=== PATIENT | male | born 1985 | race Caucasian/White ===

== ENCOUNTER 2016-09-30 09:39 | Emergency (ER) | payer OTHER, MEDICARE, MEDICAID ==
[~2016-09-30] VITALS: Ht 167.6 cm; Wt 102.1 kg
--- OUTSIDE RECORDS SUMMARY | 2016-09-30 09:47 | XMS REPORT ---
Author Author Gaby Watt [facility] Address [address] [place], [place] [id number] Care Team Providers Care Bid Clerk Name Role Phone Alyssa Watt PCP Allergies and Adverse Reactions Name Reaction Notes Tetanus Toxoid Cortisone Celebrex SULFA (SULFONAMIDES) Plan of Treatment Planned Activity Comments Planned Date Planned Time Plan/Goal COMPREHEN METABOLIC PANEL 05/01/2015 12:00 AM COMPLETE CBC W/AUTO DIFF WBC 05/01/2015 12:00 AM VITAMIN B-12 05/01/2015 12:00 AM ASSAY OF FOLIC ACID SERUM 05/01/2015 12:00 AM VITAMIN D 25 HYDROXY 05/01/2015 12:00 AM COMPLETE CBC W/AUTO DIFF WBC 02/04/2015 12:00 AM COMPREHEN METABOLIC PANEL 02/04/2015 12:00 AM Medications Active Name Start Date Estimated Completion Date SIG Comments dicyclomine 10 mg oral capsule take 1 capsule by oral route As needed trazodone 100 mg oral tablet take 1 tablet by oral route once a day (at bedtime) Xanax 1 mg oral tablet take 1 tablet by oral route 4 times a day Lexapro 20 mg oral tablet take 1 tablet (20 mg) by oral route once daily HyoMax-SL 0.125 mg sublingual tablet, sublingual place 1 tablet under tongue by translingual route As needed multivitamin Oral capsule take 1 capsule by oral route daily Lomotil 2.5-0.025 mg oral tablet take 1 tablet by oral route As needed Voltaren 1 % topical gel 12/25/2014 APPLY 2 GRAMS TO THE AFFECTED AREA(S) FOUR TIMES A DAY Nexium oral Voltaren 1 % topical gel 04/07/2015 APPLY 2 GRAMS TO THE AFFECTED AREA(S) FOUR TIMES A DAY Voltaren 1 % topical gel 07/15/2015 APPLY 2 GRAMS TO THE AFFECTED AREA(S) FOUR TIMES A DAY [place] 7.5-325 mg oral tablet 07/25/2015 08/24/2015 take 1 tablet by oral route every 8 hours for 30 days pain Name Start Date Expiration Date SIG Comments Vitamin D2 50,000 unit oral capsule 08/06/2013 10/05/2013 take 1 capsule (50, 000 unit) by oral route once weekly for 60 days Voltaren 1 % topical gel 12/18/2013 06/15/2014 apply 2 gram to the affected area(s) by topical route 4 times per day for 30 days Zantac 150 mg oral tablet 03/03/2015 07/01/2015 take 1 tablet (150 mg) by oral route 2 times per day for 30 days Discontinued Name Start Date Discontinued Date SIG Comments cyclobenzaprine 10 mg oral tablet 12/17/2013 take 1 tablet by oral route once a day (at bedtime) ibuprofen 200 mg oral capsule 12/17/2013 take 1 capsule (200 mg) by oral route every 6 hours as needed Mobic 15 mg oral tablet 12/18/2013 02/26/2014 take 1 tablet (15 mg) by oral route once daily for 30 days diclofenac sodium 75 mg oral tablet,delayed release (DR/EC) 02/26/20142013 take 1 tablet (75 mg) by oral route 2 times per day for 30 days gabapentin 100 mg oral capsule 05/13/2014 06/10/2014 take 1 capsule by oral route 3 times a day for 30 days phentermine 37.5 mg oral tablet 03/03/2015 04/03/2015 take one-half tablet ( 18.75 mg) by oral route once daily before breakfast for 30 days Zipsor 25 mg oral capsule 05/01/2015 05/27/2015 take 1 capsule (25 mg) by oral route q6 hours prn pain Problem List Description Status Onset Asperger syndrome Active Gastroesophageal Reflux Active Irritable bowel syndrome Active Back pain Active Joint Pain Active Knee Pain Active Pain in joint; Bilateral Knees Active 02/27/2014 Lumbago Active 02/27/2014 Gait Abnormality Active 02/27/2014 Hip pain Active 02/27/2014 Vitamin D deficiency Active 05/01/2015 Vital Signs Date Time BP-Sys(mm[Hg] BP-Rubia(mm[Hg]) HR(bpm) RR(rpm) Temp WT HT HC BMI BSA BMI Percentile O2 Sat(%) 05/27/2015 1:11:00 PM 126 mmHg 82 mmHg 73 bpm 20 rpm 96.4 F 233 lbs 65 in 38.77 kg/m2 2.20 m2 05/01/2015 1:17:00 PM 130 mmHg 76 mmHg 70 bpm 18 rpm 96 F 230 lbs 65 in 38.2736 kg/m 2.1874 m 04/03/2015 1:19:00 PM 132 mmHg 82 mmHg 70 bpm 18 rpm 96.2 F 230 lbs 65 in 38.27 kg/m2 2.19 m2 03/03/2015 3:40:00 PM 118 mmHg 68 mmHg 73 bpm 20 rpm 96.8 F 225 lbs 66 in 36.3156 kg/m 2.18 m 02/04/2015 4:07:00 PM 122 mmHg 68 mmHg 92 bpm 16 rpm 97.1 F 225 lbs 66 in 36.32 kg/m2 2.18 m2 11/04/2014 1:00:00 PM 124 mmHg 80 mmHg 80 bpm 18 rpm 97 F 226 lbs 66 in 36.477 kg/m 2.1849 m 09/09/2014 12:55:00 PM 112 mmHg 64 mmHg 88 bpm 18 rpm 97.2 F 224 lbs 66 in 36.15 kg/m2 2.18 m2 07/15/2014 4:03:00 PM 152 mmHg 92 mmHg 70 bpm 16 rpm 96.8 F 216.5 lbs 65 in 36.0271 kg/m 2.1222 m 06/10/2014 3:41:00 PM 116 mmHg 80 mmHg 68 bpm 16 rpm 97.3 F 218 lbs 66 in 35.19 kg/m2 2.15 m2 05/13/2014 1:05:00 PM 104 mmHg 60 mmHg 72 bpm 16 rpm 96.5 F 213.25 lbs 66 in 34.4191 kg/m 2.1223 m 02/26/2014 2:11:00 PM 138 mmHg 82 mmHg 66 bpm 16 rpm 97.4 F 223 lbs 66 in 35.99 kg/m2 2.17 m2 12/17/2013 2:34:00 PM 110 mmHg 80 mmHg 70 bpm 16 rpm 97.4 F 223 lbs 65 in 37.1088 kg/m 2.1538 m 10/22/2013 1:05:00 PM 110 mmHg 72 mmHg 72 bpm 16 rpm 97 F 220 lbs 65 in 36.61 kg/m2 2.14 m2 09/03/2013 1:21:00 PM 124 mmHg 72 mmHg 88 bpm 18 rpm 97.1 F 219 lbs 65 in 36.4431 kg/m 2.1344 m 06/28/2013 2:17:00 PM 128 mmHg 74 mmHg 88 bpm 18 rpm 97 F 218 lbs 65 in 36.28 kg/m2 2.13 m2 Social History Name Description Comments Single Home Schooled Tobacco Never smoker History of Procedures Date Ordered Description Order Status 07/03/2015 12:00 AM OFFICE/OUTPATIENT VISIT EST Reviewed 06/28/2013 12:00 AM ASSAY OF BLOOD/URIC ACID Reviewed 06/28/2013 12:00 AM RHEUMATOID FACTOR QUANT Reviewed 06/28/2013 12:00 AM ANTINUCLEAR ANTIBODIES Reviewed 06/28/2013 12:00 AM COMPREHEN METABOLIC PANEL Reviewed 06/28/2013 12:00 AM ASSAY THYROID STIM HORMONE Reviewed 06/28/2013 12:00 AM VITAMIN D 25 HYDROXY Reviewed 06/28/2013 12:00 AM METABOLIC PANEL TOTAL CA Reviewed 10/22/2013 12:00 AM Knees Both Standing AP - MOB Returned 12/17/2013 12:00 AM RADEX HIPS BILATERAL 2 VIEWS ANTEROPOST PELVIS Returned 02/26/2014 12:00 AM RADEX HIPS BILATERAL 2 VIEWS ANTEROPOST PELVIS Reviewed 09/09/2014 12:00 AM LOWER EXTREMITY STUDY Returned 03/24/2015 12:00 AM COMPLETE CBC W/AUTO DIFF WBC Returned 03/24/2015 12:00 AM COMPREHEN METABOLIC PANEL Returned Results Summary Data and Description Results 07/03/2015 3:00 PM WBC 7.9 RBC 5.18 HGB 16.70 g/dLHCT 49.10 %MCV 95.0 fLMCH 32.20 pgMCHC 34.0 g/dLRDW CV 13.20 %MPV 10.60 fLPLT 259 %NEUT 51.60 %%LYMP 39.10 %%MONO 8.0 %%EOS 0.90 %%BASO 0.40 %#NEUT 4.06 #LYMP 3.07 #MONO 0.63 #EOS 0.07 #BASO 0.03 GLUCOSE 112.0 mg/dLSODIUM 139.0 mmol/LPOTASSIUM 3.60 mmol/ LCHLORIDE 108.0 mmol/LCO2 23.0 mmol/LBUN 9.0 mg/dLCREATININE 1.10 mg/dLSGOT/AST 30.0 IU/LSGPT/ALT 77.0 IU/LALK PHOS 67.0 IU/LTOTAL PROTEIN 6.40 g/dLALBUMIN 4.30 g/dLTOTAL BILI 0.40 mg/dLCALCIUM 9.10 mg/dLeGFR >60 mL/min/1.73mVITAMIN B12 834.0 pg/mLFOLATE 15.10 ng/mL History Of Immunizations Not available. History of Past Illness Name Date of Onset Comments Asperger syndrome Irritable bowel syndrome Gastroesophageal Reflux Back pain Joint Pain Knee Pain Pain in joint; Bilateral Knees 02/27/2014 Lumbago 02/27/2014 Gait Abnormality 02/27/2014 Hip pain 02/27/2014 Vitamin D deficiency 05/01/2015 Polyarthralgia Jun 28 2013 2:26PM Vitamin D Deficiency Aug 06 2013 11:00AM Polyarthralgia Sep 03 2013 1:30PM Vitamin D Deficiency Sep 03 2013 1:30PM Pain in joint; Bilateral Knees Oct 22 2013 1:07PM Lumbago Oct 22 2013 1:07PM Pain in joint; Bilateral Knees Dec 17 2013 2:37PM Lumbago Dec 17 2013 2:37PM Gait Abnormality Dec 17 2013 2:37PM Hip pain Dec 17 2013 2:37PM Pain in joint; Bilateral Knees Feb 26 2014 2:19PM Lumbago Feb 26 2014 2:19PM Gait Abnormality Feb 26 2014 2:19PM Hip pain Feb 26 2014 2:19PM Pain in joint; Bilateral Knees May 13 2014 1:08PM Lumbago May 13 2014 1:08PM Gait Abnormality May 13 2014 1:08PM Hip pain May 13 2014 1:08PM Claudication Sep 09 2014 12:59PM Pain in joint; Bilateral Knees Jun 10 2014 3:43PM Lumbago Jun 10 2014 3:43PM Gait Abnormality Jun 10 2014 3:43PM Hip pain Jun 10 2014 3:43PM Abdominal pain Feb 04 2015 4:09PM Pain in joint; Bilateral Knees Jul 15 2014 4:18PM Lumbago Jul 15 2014 4:18PM Gait Abnormality Jul 15 2014 4:18PM Hip pain Jul 15 2014 4:18PM Pain in joint; Bilateral Knees Sep 09 2014 12:59PM Lumbago Sep 09 2014 12:59PM Gait Abnormality Sep 09 2014 12:59PM Hip pain Sep 09 2014 12:59PM Pain in joint; Bilateral Knees Nov 04 2014 1:04PM Lumbago Nov 04 2014 1:04PM Gait Abnormality Nov 04 2014 1:04PM Hip pain Nov 04 2014 1:04PM Pain in joint; Bilateral Knees Feb 04 2015 4:09PM Lumbago Feb 04 2015 4:09PM Gait Abnormality Feb 04 2015 4:09PM Hip pain Feb 04 2015 4:09PM Abdominal pain Mar 03 2015 3:43PM Pain in joint; Bilateral Knees Mar 03 2015 3:43PM Lumbago Mar 03 2015 3:43PM Gait Abnormality Mar 03 2015 3:43PM Hip pain Mar 03 2015 3:43PM Pain in joint; Bilateral Knees Apr 03 2015 1:21PM Lumbago Apr 03 2015 1:21PM Gait Abnormality Apr 03 2015 1:21PM Hip pain Apr 03 2015 1:21PM Vitamin D deficiency May 01 2015 1:20PM Vitamin B 12 deficiency May 01 2015 1:20PM Elevated LFTs May 01 2015 1:20PM Pain in joint; Bilateral Knees May 01 2015 1:20PM Lumbago May 01 2015 1:20PM Gait Abnormality May 01 2015 1:20PM Hip pain May 01 2015 1:20PM Pain in joint; Bilateral Knees May 27 2015 1:12PM Lumbago May 27 2015 1:12PM Gait Abnormality May 27 2015 1:12PM Asperger Syndrome May 27 2015 1:12PM Lumbago Jul 03 2015 2:31PM Chronic pain syndrome Jul 25 2015 11:00AM Payers Insurance Name Company Name Plan Name Plan Number Policy Number Policy Group Number Start Date Medicare Part B [employer] [place] [id number] Wednesday, 2006 [facility] [id number] N/A History of Encounters Visit Date Visit Type Provider 07/25/2015 Nurse visit Gaby PAIZ 07/03/2015 Office visit Gaby PAIZ 05/27/2015 Office visit Gaby PAIZ 05/01/2015 Office visit Gaby PAIZ 04/03/2015 Office visit Gaby PAIZ 03/03/2015 Office visit Gaby PAIZ 02/04/2015 Office visit Gaby PAIZ 11/04/2014 Office visit Gaby PAIZ 09/09/2014 Office visit Gaby PAIZ 07/15/2014 Office visit Gaby PAIZ 06/10/2014 Office visit Gaby PAIZ 05/13/2014 Office visit Gaby PAIZ 02/26/2014 Office visit Gaby PAIZ 12/17/2013 Office visit Gaby PAIZ 10/22/2013 Office visit Gaby PAIZ 09/03/2013 Office visit Joelle Celaya MD 06/28/2013 Office visit Joelle Celaya MD
[2016-09-30] MEDS ORDERED: DIAZ10TA PO (10:19)
[2016-09-30] MEDS ORDERED: HYDR-3816 PO (10:19)
[2016-09-30] MEDS ORDERED: MULT-974 PO (10:19)
[2016-09-30] MEDS ORDERED: ESCI20TA PO (10:19)
[2016-09-30] MEDS ORDERED: TRAZ-28 PO (10:19)
[2016-09-30] MEDS ORDERED: ASPI-999 PO (10:19)
[2016-09-30] MEDS ORDERED: ALPR2TAB2 PO (10:19)
[2016-09-30 11:07] LABS: BASOPHILS % (AUTO) 0 % (0-10); EOSINOPHILS # (AUTO) 0.1 10^3/uL (0.0-0.3); EOSINOPHILS % (AUTO) 1 % (0-10); LYMPHOCYTES # (AUTO) 2.5 X 10^3 (1.0-4.0); LYMPHOCYTES % (AUTO) 35 % (12-44); MEAN CORPUSCULAR HEMOGLOBIN 32 PG (25-34); MEAN CORPUSCULAR HGB CONC 34 G/DL (32-36); MEAN CORPUSCULAR VOLUME 93 FL (80-99); MEAN PLATELET VOLUME 10.7 FL (7.4-10.4); MONOCYTES # (AUTO) 0.6 X 10^3 (0.0-1.0); MONOCYTES % (AUTO) 8 % (0-12); NEUTROPHILS # (AUTO) 3.9 X 10^3 (1.8-7.8); NEUTROPHILS % (AUTO) 56 % (42-75); PLATELET COUNT 235 10^3/uL (130-400); RED BLOOD COUNT 5.28 10^6/uL (4.35-5.85); RED CELL DISTRIBUTION WIDTH 13.3 % (10.0-14.5)
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
[2016-09-30] MEDS ORDERED: IOHEXOL 350 MG/ML 100 ML (OMNIPAQUE 350) VIAL IV ONE (12:00)
[2016-09-30] MEDS ORDERED: NS 100 ML (IVPB) BAG IV ONE (12:00)
[2016-09-30] MEDS ORDERED: CATHETER FLUSH 10 ML SYR IV PRN (12:00)
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
[2016-09-30 13:39] VITALS: BP 118/70
== END 2016-09-30 13:37 | disposition home or self-care (01) ==
LOC: EDUNIT# 09:39 → ER 09:41
DX: S19.9XXA Unspecified injury of neck, initial encounter (principal); Z79.82 Long term (current) use of aspirin; Z79.899 Other long term (current) drug therapy; V43.62XA Car passenger injured in collision with other type car in traffic accident, initial encounter; Y92.414 Local residential or business street as the place of occurrence of the external cause; Y99.8 Other external cause status
CPT/HCPCS: 36415; 71020; 72040; 74177; 85025

== ENCOUNTER → 2017-03-26 | Outpatient (CLI) | payer OTHER, MEDICARE, MEDICAID ==
[~2017-03-26] MED LIST: ALPR2TAB2 PO; ASPI-999 PO; DIAZ10TA PO; ESCI20TA PO; HYDR-3816 PO; MULT-974 PO; TRAZ-28 PO
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
== END ==
LOC: RAD 12:48
PROVIDERS: ATTEND Family Medicine
DX: M25.551 Pain in right hip (principal)
CPT/HCPCS: 73502

== ENCOUNTER 2020-11-11 10:00 | Emergency (ER) | payer MEDICARE, MEDICAID ==
[~2020-11-11] VITALS: Ht 167 cm; Wt 99.0 kg
[~2020-11-11 10:00] MED LIST changes: +HYDR-34 PO; -HYDR-3816 PO; -TRAZ-28 PO; +TRZ50T PO
[2020-11-11] MEDS ORDERED: ONDANSETRON 4 MG/2 ML (SDV) Z0FRAN IV PRN (10:30)
[2020-11-11] MEDS ORDERED: LACTATED RINGERS 1,000 ML IV ONE ×2 (10:30)
--- NOTE | 2020-11-11 10:31 | ED Abdominal Pain ---
General Chief Complaint: Abdominal/GI Problems Stated Complaint: FEVER,FAULKNER,N/V Source of Information: Patient Exam Limitations: No Limitations History of Present Illness Date Seen by Provider: Nov 11, 2020 Time Seen by Provider: 10:08 Initial Comments The patient and his mother present to the ER by private conveyance with chief complaint of epigastric abdominal pain nausea vomiting diarrhea and fever T-max 100.8 since Tuesday, 2 days ago. No sick contacts. No history of abdominal surgeries. Primary care Dr. Paul [place], [place]. They have been using Phenergan, Tylenol and Motrin with last dose of Motrin being about 2 hours prior to arrival. Patient feels he is short of breath and has no history of lung disorders or smoking. 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 Allergies and Home Medications Allergies Coded Allergies: Sulfa (Sulfonamide Antibiotics) (Unverified Allergy, Mild, RASH, 09/30/16) tetanus and diphtheria toxoids (Unverified Allergy, Mild, RASH, 09/30/16) Uncoded Allergies: STEROID (Allergy, Mild, RASH, 09/30/16) Home Medications Alprazolam 2 Mg Tablet, 2 MG PO QID, (Reported) Aspirin 81 Mg Tab.chew, 172 MG PO DAILY, (Reported) Diazepam 10 Mg Tablet, 10 MG PO BID, (Reported) Escitalopram Oxalate 20 Mg Tablet, 20 MG PO DAILY, (Reported) Hydrocodone Bit/Acetaminophen 1 Each Tablet, 1 EACH PO TID, (Reported) Multivitamin 1 Each Tablet, 1 EACH PO DAILY, (Reported) Trazodone HCl 50 Mg Tablet, 50 MG PO HS, (Reported) Patient Home Medication List Home Medication List Reviewed: Yes Review of Systems Review of Systems Constitutional: chills, fever, malaise EENTM: No Blurred Vision, No Double Vision Respiratory: Cough, Shortness of Air Cardiovascular: Denies Chest Pain, Denies Edema Gastrointestinal: See HPI, Abdominal Pain (Epigastric); Denies Blood Streaked Stools, Denies Constipated; Diarrhea, Nausea, Poor Fluid Intake, Vomiting Genitourinary: Denies Burning, Denies Discharge Musculoskeletal: No back pain, No joint pain All Other Systems Reviewed Negative Unless Noted: Yes Past Vpymldl-Oxefmy-Lgguye Hx Patient Social History Alcohol Use: Denies Use Smoking Status: Never a Smoker Recent Hopitalizations: No Immunizations Up To Date Tetanus Booster (TDap): Unknown Date of Influenza Vaccine: Jun 14, 2016 Past Medical History Gallbladder, Tonsillectomy Adverse Reaction/Blood Tranf: No Physical Exam Vital Signs Vital Signs - First Documented 11/11/20 10:05 Temp 36.7 Pulse 117 Resp 24 B/P (MAP) 126/96 (106) Pulse Ox 98 Capillary Refill : Height/Weight/BMI Height: 5'6" Weight: 225lbs. oz. 102.658187ff; BMI Method:Stated General Appearance: moderate distress, obese HEENT: PERRL/EOMI, pharynx normal (Mildly dry mucosa) Neck: full range of motion, normal inspection Respiratory: lungs clear, normal breath sounds, no respiratory distress, no accessory muscle use Cardiovascular: normal peripheral pulses, regular rate, rhythm, tachycardia Gastrointestinal: normal bowel sounds, soft; No guarding, No rebound; tenderness (Mild epigastric), other (Negative for McBurney's point tenderness, Matta sign, Rovsing's, psoas or other mesenteric signs) Neurologic/Psychiatric: alert, normal mood/affect, oriented x 3 Skin: normal color, warm/dry Focused Exam Lactate Level 11/11/20 10:18: Lactic Acid Level 2.01*H 11/11/20 12:10: Lactic Acid Level 2.24*H Lactic Acid Level Laboratory Tests Test 11/11/20 10:18 11/11/20 12:10 Lactic Acid Level 2.01 MMOL/L (0.50-2.00) *H 2.24 MMOL/L (0.50-2.00) *H Progress/Results/Core Measures Results/Orders Lab Results Laboratory Tests Test 11/11/20 10:18 11/11/20 10:20 11/11/20 12:00 11/11/20 12:10 Range/Units White Blood Count 11.6 H 4.3-11.0 10^3/uL Red Blood Count 6.54 H 4.30-5.52 10^6/uL Hemoglobin 20.9 H 13.3-17.7 g/dL Hematocrit 60 H 40-54 % Mean Corpuscular Volume 92 80-99 fL Mean Corpuscular Hemoglobin 32 25-34 pg Mean Corpuscular Hemoglobin Concent 35 32-36 g/dL Red Cell Distribution Width 13.0 10.0-14.5 % Platelet Count 319 130-400 10^3/uL Mean Platelet Volume 10.4 9.0-12.2 fL Immature Granulocyte % (Auto) 0 % Neutrophils (%) (Auto) 81 H 42-75 % Lymphocytes (%) (Auto) 9 L 12-44 % Monocytes (%) (Auto) 9 0-12 % Eosinophils (%) (Auto) 0 0-10 % Basophils (%) (Auto) 0 0-10 % Neutrophils # (Auto) 9.4 H 1.8-7.8 10^3/uL Lymphocytes # (Auto) 1.1 1.0-4.0 10^3/uL Monocytes # (Auto) 1.0 0.0-1.0 10^3/uL Eosinophils # (Auto) 0.0 0.0-0.3 10^3/uL Basophils # (Auto) 0.0 0.0-0.1 10^3/uL Immature Granulocyte # (Auto) 0.0 0.0-0.1 10^3/uL Prothrombin Time 13.1 12.2-14.7 SEC INR Comment 1.0 0.8-1.4 Activated Partial Thromboplast Time 30 24-35 SEC Sodium Level 137 135-145 MMOL/L Potassium Level 3.8 3.6-5.0 MMOL/L Chloride Level 104 98-107 MMOL/L Carbon Dioxide Level 18 L 21-32 MMOL/L Anion Gap 15 H 5-14 MMOL/L Blood Urea Nitrogen 12 7-18 MG/DL Creatinine 1.30 0.60-1.30 MG/DL Estimat Glomerular Filtration Rate > 60 BUN/Creatinine Ratio 9 Glucose Level 105 70-105 MG/DL Lactic Acid Level 2.01 *H 2.24 *H 0.50-2.00 MMOL/L Calcium Level 9.8 8.5-10.1 MG/DL Corrected Calcium 8.5-10.1 MG/DL Total Bilirubin 1.6 H 0.1-1.0 MG/DL Aspartate Amino Transf (AST/SGOT) 28 5-34 U/L Alanine Aminotransferase (ALT/SGPT) 62 H 0-55 U/L Alkaline Phosphatase 73 40-136 U/L Total Protein 8.3 H 6.4-8.2 GM/DL Albumin 5.2 H 3.2-4.5 GM/DL Coronavirus 2019 ([facility]) Negative Negative Urine Color YELLOW Urine Clarity CLEAR Urine pH 6.5 5-[address] 1.020 1.016-1.022 Urine Protein 2+ H NEGATIVE Urine Glucose (UA) NEGATIVE NEGATIVE Urine Ketones 3+ H NEGATIVE Urine Nitrite NEGATIVE NEGATIVE Urine Bilirubin 1+ H NEGATIVE Urine Urobilinogen 0.2 < = 1.0 MG/DL Urine Leukocyte Esterase NEGATIVE NEGATIVE Urine RBC (Auto) NEGATIVE NEGATIVE Urine RBC NONE /HPF Urine WBC RARE /HPF Urine Squamous Epithelial Cells RARE /HPF Urine Crystals NONE /LPF Urine Bacteria TRACE /HPF Urine Casts NONE /LPF Urine Mucus MODERATE H /LPF Urine Culture Indicated NO Micro Results Microbiology 11/11/20 Influenza Types A,B Antigen ([facility]) - Final, Complete My Orders Orders - RITU PENDLETON Cbc With Automated Diff (11/11/20 10:19) Comprehensive Metabolic Panel (11/11/20 10:19) Blood Culture (11/11/20 10:19) Sputum Culture (11/11/20 10:19) Urinalysis (11/11/20 10:19) Urine Culture (11/11/20 10:19) Protime With Inr (11/11/20 10:19) Partial Thromboplastin Time (11/11/20 10:19) Chest 1 View, Ap/Pa Only (11/11/20 10:19) Ed Iv/Invasive Line Start (11/11/20 10:19) Ed Iv/Invasive Line Start (11/11/20 10:19) Vital Signs Adult Sepsis Patie Q15M (11/11/20 10:19) Ondansetron Injection (Zofran Injectio (11/11/20 10:30) O2 (11/11/20 10:19) Remove Rings In Anticipation O (11/11/20 10:19) Lactic Acid Analyzer (11/11/20 10:19) Influenza A And B Antigens (11/11/20 10:19) Lactated Ringers (Lr 1000 Ml Iv Solution (11/11/20 10:30) Lactated Ringers (Lr 1000 Ml Iv Solution (11/11/20 10:30) Covid 19 Inhouse Test (11/11/20 10:19) Coronavirus Sars-Cov-2 So 2018 (11/11/20 10:20) Ed Iv/Invasive Line Start (11/11/20 12:49) Ns Iv 1000 Ml (Sodium Chloride 0.9%) (11/11/20 13:00) Ct Abdomen/Pelvis W (11/11/20 12:49) Iohexol Injection (Omnipaque 350 Mg/Ml 1 (11/11/20 13:00) Received Contrast (Hold Metformin- Contr (11/11/20 13:00) Sodium Chloride Flush (Catheter Flush Sy (11/11/20 13:00) Ns (Ivpb) (Sodium Chloride 0.9% Ivpb Bag (11/11/20 13:00) Medications Given in ED Current Medications Medications Dose Ordered Sig/Olya Route Start Time Stop Time Status Last Admin Dose Admin Iohexol 100 ml ONCE ONCE IV 11/11/20 13:00 11/11/20 13:01 DC 11/11/20 14:03 100 ML Lactated Ringer's 1,000 ml @ 0 mls/hr Q0M ONCE IV 11/11/20 10:30 11/11/20 10:31 DC 11/11/20 10:32 1,000 MLS/HR Lactated Ringer's 1,000 ml @ 0 mls/hr Q0M ONCE IV 11/11/20 10:30 11/11/20 10:31 DC 11/11/20 10:32 1,000 MLS/HR Ondansetron HCl 8 mg PRN PRN IV 11/11/20 10:30 11/11/20 10:33 DC 11/11/20 10:33 8 MG Sodium Chloride 100 ml ONCE ONCE IV 11/11/20 13:00 11/11/20 13:01 DC 11/11/20 14:03 80 ML Vital Signs/I&O 11/11/20 10:05 Temp 36.7 Pulse 117 Resp 24 B/P (MAP) 126/96 (106) Pulse Ox 98 Progress Progress Note #1: Time: 10:35 Progress Note Gastroenteritis likely viral. No blood in the stool. We will give him some Zofran, fluids for his dehydration and a septic work-up. Since he is having diarrhea obstruction is less likely. Influenza and Covid swabs. Progress Note #2: Time: 12:56 Progress Note Nausea is better and pain is better but his lactate went up. This could be if he did not flushed appropriately after giving lactated Ringer's or there could be some intra-abdominal process so organ to get a CT. We have discussed doing an observation for fluids and medications and will talk to Dr. Woodson about it. The patient and his guardian are in agreement with staying. They will bring his medicines up. Progress Note #3: Time: 13:31 Progress Note Guardian and patient state that they would prefer if he went home and manage his symptoms at home. This provider is okay to go ahead and get the CT scan and if it is okay and his lactate is improving after another bag of IV fluids we will let him go home with outpatient medications. Diagnostic Imaging Diagonstic Imaging: Xray Plain Films/CT/US/NM/MRI: chest Comments [facility], [place] NAME: EDILBERTODANE J [facility] REC#: [id number] PT STATUS: REG ER : 1985 PHYSICIAN: RITU PENDLETON MD ADMIT DATE: 11/11/20/ER Draft Date of Exam:11/11/20 CHEST 1 VIEW, AP/PA ONLY EXAMINATION: Portable erect AP chest at 10:46 AM. INDICATION: Fever. FINDINGS: The heart size is within normal limits and stable when compared to 09/30/2016. As on the prior exam, there are a few crowded bronchovascular markings in the right infrahilar region. The lungs remain generally clear. There is no sign of failure, pneumonia, or pleural effusion. The mediastinum is not widened. The osseous structures are intact. IMPRESSION: There is no evidence for active disease. Dictated on workstation # [id number] Dict: 11/11/20 1057 Trans: 11/11/20 1059 [id number] [id number] Interpreted by: NANCY CORTEZ MD Electronically signed by: Reviewed: Reviewed by Me Diagonstic Imaging: CT Plain Films/CT/US/NM/MRI: abdomen, pelvis Comments NAME: EDILBERTODANE J MED REC#: [id number] PT STATUS: REG ER : 1985 PHYSICIAN: RITU PENDLETON MD ADMIT DATE: 11/11/20/ER Draft Date of Exam:11/11/20 CT ABDOMEN/PELVIS W EXAMINATION: CT abdomen/pelvis w. TECHNIQUE: Multiple contiguous axial images were obtained through the abdomen and pelvis after administration of intravenous contrast. All CT scans use one or more of the following dose optimizing techniques: automated exposure control, MA and/or KvP adjustment based on a patient size and exam type, or iterative reconstruction. INDICATION: Abdominal pain with nausea and vomiting. COMPARISON: 09/30/2016 FINDINGS: Lower chest: The lung bases are clear. No pericardial or pleural effusion. Peritoneum: No free intraperitoneal air or fluid. Liver and biliary system: Stable hypoattenuation of the liver most compatible with diffuse hepatic steatosis. No focal hepatic lesion. Portal vein is patent. Cholecystectomy. No pathologic biliary duct dilatation. Spleen and Pancreas: Spleen is normal. The pancreas enhances normally without mass lesion or peripancreatic inflammatory changes. Adrenals: Normal. tract: The kidneys enhance normally without suspicious mass or obstruction. Urinary bladder is distended without wall thickening. Prostate is normal in appearance. GI tract: Stomach is mildly distended with fluid and there is no wall thickening. The majority of the small bowel is fluid-filled but nondilated. Colon is also fluid-filled without wall thickening or surrounding inflammatory change. Normal appendix. Vasculature and Lymph nodes: Normal caliber aorta. No abdominal or pelvic lymphadenopathy. Musculoskeletal: No concerning osseous lesion. IMPRESSION: 1. CT features suggest gastroenteritis and diarrheal state. 2. No bowel obstruction, colitis or diverticulitis. Dictated on workstation # [id number] Dict: 11/11/20 1406 Trans: 11/11/20 1411 [facility] [id number] Interpreted by: IVORY REYES MD Electronically signed by: Reviewed: Reviewed by Me Departure Impression Primary Impression: Gastroenteritis and colitis, viral Additional Impressions: Dehydration Polycythemia Person under investigation for COVID-19 Disposition: 01 HOME, SELF-CARE Condition: Stable Departure-Patient Inst. Decision time for Depature: 14:14 Referrals: NO,LOCAL PHYSICIAN (PCP/Family) Primary Care Physician Patient Instructions: Diarrhea in Adolescents and Adults, Viral Gastroenteritis, Adult (DC), Coronavirus Disease 2019 (COVID-19) Overview Add. Discharge Instructions: Drink plenty of fluids and sports drinks. Brat diet consisting of bananas, rice, applesauce and toast. Zofran 1 tablet under the tongue every 6 hours as necessary for nausea and/or vomiting. Imodium 2 tablets initially followed by 1 tablet every 4 hours afterwards that you are still having loose, watery diarrhea. Plan to follow-up with your primary care doctor later this week or early next week for continued management. Return to the nearest ER if you are having worsening symptoms. You are to remain on quarantine until you receive the results of your COVID-19 testing. If it is negative then you are to remain quarantined until your symptoms free for 72 hours without medications to mask your symptoms. If it is positive then you are to remain on quarantine for 10 days plus you must be 72 hours symptoms free without medications to mask your symptoms. All discharge instructions reviewed with patient and/or family. Voiced understanding. Scripts Ondansetron (Ondansetron Odt) 4 Mg Tab.rapdis 4 MG PO Q6H PRN for NAUSEA/VOMITING, #15 TAB 0 Refills Prov: RITU PENDLETON 11/11/20 Work/School Note: Work Release Form Date Seen in the Emergency Department: Nov 11, 2020 Return to Work: Nov 24, 2020 Other Restrictions Listed Below: Off quarantine when symptom-free 72h without meds to mask symptoms. RITU PENDLETON Nov 11, 2020 10:31
[2020-11-11 10:36] LABS: BASOPHILS % (AUTO) 0 % (0-10); EOSINOPHILS % (AUTO) 0 % (0-10); HEMATOCRIT 60 % (40-54); HEMOGLOBIN 20.9 g/dL (13.3-17.7); LYMPHOCYTES # (AUTO) 1.1 10^3/uL (1.0-4.0); LYMPHOCYTES % (AUTO) 9 % (12-44); MEAN CORPUSCULAR HEMOGLOBIN 32 pg (25-34); MEAN CORPUSCULAR HGB CONC 35 g/dL (32-36); MEAN CORPUSCULAR VOLUME 92 fL (80-99); MEAN PLATELET VOLUME 10.4 fL (9.0-12.2); MONOCYTES % (AUTO) 9 % (0-12); NEUTROPHILS # (AUTO) 9.4 10^3/uL (1.8-7.8); NEUTROPHILS % (AUTO) 81 % (42-75); PLATELET COUNT 319 10^3/uL (130-400); WHITE BLOOD COUNT 11.6 10^3/uL (4.3-11.0)
[2020-11-11 10:49] LABS: PROTHROMBIN TIME PATIENT 13.1 SEC (12.2-14.7)
[2020-11-11 10:50] LABS: ALBUMIN 5.2 GM/DL (3.2-4.5); CHLORIDE 104 MMOL/L (98-107); POTASSIUM 3.8 MMOL/L (3.6-5.0); SODIUM 137 MMOL/L (135-145)
[2020-11-11 10:51] LABS: CALCIUM 9.8 MG/DL (8.5-10.1)
[2020-11-11 10:52] LABS: GLUCOSE 105 MG/DL (70-105)
[2020-11-11 10:53] LABS: TOTAL PROTEIN 8.3 GM/DL (6.4-8.2)
[2020-11-11 10:54] LABS: BILIRUBIN,TOTAL 1.6 MG/DL (0.1-1.0); CARBON DIOXIDE 18 MMOL/L (21-32)
[2020-11-11 10:56] LABS: ALKALINE PHOSPHATASE 73 U/L (40-136); GFR ESTIMATED > 60
[2020-11-11 10:57] LABS: BUN/CREATININE RATIO 9
[2020-11-11 10:59] LABS: ALANINE AMINOTRANSFERASE 62 U/L (0-55)
--- NOTE | 2020-11-11 11:00 | Diagnostic Imaging Report ---
EXAMINATION: Portable erect AP chest at 10:46 AM. INDICATION: Fever. FINDINGS: The heart size is within normal limits and stable when compared to 09/30/2016. As on the prior exam, there are a few crowded bronchovascular markings in the right infrahilar region. The lungs remain generally clear. There is no sign of failure, pneumonia, or pleural effusion. The mediastinum is not widened. The osseous structures are intact. IMPRESSION: There is no evidence for active disease. Dictated by: Dictated on workstation # [id number]
[2020-11-11 12:14] LABS: CLARITY,URINE CLEAR; COLOR,URINE YELLOW; GLUCOSE, URINE (UA) NEGATIVE (NEGATIVE); KETONES,URINE 3+ (NEGATIVE); LEUKOCYTE ESTERASE ,URINE NEGATIVE (NEGATIVE); NITRITE,URINE NEGATIVE (NEGATIVE); PH,URINE 6.5 (5-9); PROTEIN,URINE 2+ (NEGATIVE)
[2020-11-11 12:43] LABS: BACTERIA,URINE TRACE /HPF; BILIRUBIN,URINE 1+ (NEGATIVE); SQUAMOUS EPITHELIAL CELL,UR RARE /HPF; WBC,URINE RARE /HPF
[2020-11-11] MEDS ORDERED: IOHEXOL 350 MG/ML 100 ML (OMNIPAQUE 350) VIAL IV ONE (13:00)
[2020-11-11] MEDS ORDERED: NS 100 ML (IVPB) BAG IV ONE (13:00)
[2020-11-11] MEDS ORDERED: NS IV 1000 ML 1,000 ML IV SCH (13:00)
[2020-11-11] MEDS ORDERED: HOLD METFORMIN - RECEIVED CONTRAST 20 ML VIAL IV SCH (13:00)
[2020-11-11] MEDS ORDERED: CATHETER FLUSH 10 ML SYR IV PRN (13:00)
--- NOTE | 2020-11-11 14:12 | Diagnostic Imaging Report ---
EXAMINATION: CT abdomen/pelvis w. TECHNIQUE: Multiple contiguous axial images were obtained through the abdomen and pelvis after administration of intravenous contrast. All CT scans use one or more of the following dose optimizing techniques: automated exposure control, MA and/or KvP adjustment based on a patient size and exam type, or iterative reconstruction. INDICATION: Abdominal pain with nausea and vomiting. COMPARISON: 09/30/2016 FINDINGS: Lower chest: The lung bases are clear. No pericardial or pleural effusion. Peritoneum: No free intraperitoneal air or fluid. Liver and biliary system: Stable hypoattenuation of the liver most compatible with diffuse hepatic steatosis. No focal hepatic lesion. Portal vein is patent. Cholecystectomy. No pathologic biliary duct dilatation. Spleen and Pancreas: Spleen is normal. The pancreas enhances normally without mass lesion or peripancreatic inflammatory changes. Adrenals: Normal. tract: The kidneys enhance normally without suspicious mass or obstruction. Urinary bladder is distended without wall thickening. Prostate is normal in appearance. GI tract: Stomach is mildly distended with fluid and there is no wall thickening. The majority of the small bowel is fluid-filled but nondilated. Colon is also fluid-filled without wall thickening or surrounding inflammatory change. Normal appendix. Vasculature and Lymph nodes: Normal caliber aorta. No abdominal or pelvic lymphadenopathy. Musculoskeletal: No concerning osseous lesion. IMPRESSION: 1. CT features suggest gastroenteritis and diarrheal state. 2. No bowel obstruction, colitis or diverticulitis. Dictated by: Dictated on workstation # [id number]
[2020-11-11] MEDS ORDERED: ONDA4TAB11 PO (14:17)
[2020-11-11 14:26] VITALS: BP 126/96
== END 2020-11-11 14:26 | disposition home or self-care (01) ==
LOC: EDUNIT# 10:00 → ER 10:01
DX: A08.4 Viral intestinal infection, unspecified (principal); D75.1 Secondary polycythemia; F81.9 Developmental disorder of scholastic skills, unspecified; Z20.822 Contact with and (suspected) exposure to COVID-19; Z88.2 Allergy status to sulfonamides; Z88.7 Allergy status to serum and vaccine; Z88.8 Allergy status to other drugs, medicaments and biological substances; Z79.82 Long term (current) use of aspirin
CPT/HCPCS: 71045; 74177; 80053; 81000; 83605; 85025; 85610; 85730; 87040; 87088; 87804; U0002; 36415; 87635